=== PATIENT | male | born 1960 | race Caucasian/White ===

== ENCOUNTER 2017-10-23 13:48 | Emergency (ER) | payer OTHER ==
[~2017-10-23] VITALS: Ht 160 cm; Wt 45.4 kg
[~2017-10-23 13:48] MED LIST: ACETAMINOPHEN; ACETAMINOPHEN-1 EAC1 PO; ACETAMINOPHEN325 M1 PO; AMBIEN 10 MG TA10 MG PO; AMBIEN 5 MG TABL5 M1 PO; AMOXICILLIN 50500 M1 PO; ATIVAN1 MG PO; ATIVAN2 MG PO; BACTRIM DS TAB1 EACH PO; BENADRYL25 MG PO; BIAXIN PO; CARAFATE 1 GM TA1 G1 GT; CEPACOL SORE T1 EAC1; CLONAZEPAM 1 MG1 M1 PO; CLOTRIMAZOLE 1%30 M1; COLACE 100 MG100 MG PO; COLACE1 EAC1 RC; DAILY MULTIVIT1 EAC5 PO; DEPAKOTE ER500 MG PO; DEPAKOTE250 MG PO; DILANTIN100 MG PO; FISH OIL 1,001000 M1 PO; GLUCERNA1 EACH PO; IMIPRAMINE HCL25 MG PO; IMODIUM A-D1 MG/5 ML PO; IMODIUM ADVANC1 EAC1 PO; IRON325 PO; LAMISIL AT15 GM TP; LORATIDINE 10 M10 M1 PO; MELATONIN5 M3 PO; MOM PO; MOTRIN 600 MG600 M1 GT; NEXIUM40 MG PO; PEPTO-BISM262 MG/15 PO; PEPTO-BISMOL262 M1 PO; PHENERGAN25 M2 RC; PRED FORTE 1% EY5 M1 OP; PREVACID 30MG C30 M1 PO; REGLAN 10 MG TA10 MG PO; ROBITUSSIN10 MG MM; SEROQUEL 50 MG50 MG PO; SYNTHROID25 MCG PO; TAMSULOSIN HCL0.4 MG PO; TOFRANIL-PM75 MG PO; TRIHEXYPHENIDYL2 M1 PO; ZOCOR 20 MG TAB20 M1 PO; ZOFRAN ODT4 MG PO; ZYPREXA 10 MG T10 M1 PO; ZYPREXA ZYDIS15 MG PO; ZYPREXA20 MG PO; [UNRECOGNIZED DRUG - OTHER] PO; [UNRECOGNIZED DRUG - OTHER] PO
[2017-10-23 14:56] LABS: ABSOLUTE NEUTROPHILS 2.9 thou/uL (1.4-8.2); BASOPHILS 0.3 % (0.0-2.0); EOSINOPHILS 3.8 % (0.0-3.0); HEMATOCRIT 41.9 % (42.0-52.0); HEMOGLOBIN 13.9 gm/dL (14.0-18.0); MCH 30.6 pg (26.0-34.0); MCHC 33.1 g/dL (28.0-37.0); MCV 92.4 fL (80.0-100.0); MONOCYTES 8.7 % (1.0-8.0); POLYS 63.2 % (36.0-66.0); RBC 4.53 mil/uL (4.50-6.00); RDW 17.3 % (10.5-14.5); WBC 4.6 thou/uL (4.0-11.0)
[2017-10-23 15:02] LABS: CALCIUM 9.5 mg/dL (8.5-10.1); CREATININE 1.1 mg/dL (0.7-1.3); POTASSIUM 4.2 mmol/L (3.5-5.1)
[2017-10-23] MEDS ORDERED: ANUSOL-HC25 MG RECTAL (15:08)
[2017-10-23 15:24] LABS: PLATELET COUNT 63 thou/uL (150-400); PLATELET ESTIMATE DECREASED
== END 2017-10-23 15:25 | disposition home or self-care (01) ==
LOC: ER 13:48
PROVIDERS: Physician Assistant
DX: K64.4 Residual hemorrhoidal skin tags (principal); K21.9 Gastro-esophageal reflux disease without esophagitis

== ENCOUNTER 2018-11-16 09:38 | Emergency (ER) | payer OTHER ==
[~2018-11-16] VITALS: Ht 152.4 cm; Wt 59.0 kg
[~2018-11-16 09:38] MED LIST changes: +ANUSOL-HC25 MG RECTAL
[2018-11-16 10:05] LABS: ABSOLUTE NEUTROPHILS 2.6 thou/uL (1.4-8.2); BASOPHILS 0.4 % (0.0-2.0); EOSINOPHILS 4.3 % (0.0-3.0); HEMATOCRIT 41.4 % (42.0-52.0); LYMPHOCYTES 23.1 % (24.0-44.0); MCHC 33.7 g/dL (28.0-37.0); MCV 97.9 fL (80.0-100.0); MONOCYTES 14.4 % (1.0-8.0); POLYS 57.8 % (36.0-66.0); RBC 4.23 mil/uL (4.50-6.00); RDW 14.8 % (10.5-14.5); WBC 5.1 thou/uL (4.0-11.0)
[2018-11-16 10:12] LABS: ANION GAP 3 mmol/L (7-16); BUN 11 mg/dL (7-18); CALCIUM 9.5 mg/dL (8.5-10.1); CHLORIDE 102 mmol/L (98-107); CO2 33 mmol/L (21-32); GLUCOSE 131 mg/dL (74-106); POTASSIUM 3.8 mmol/L (3.5-5.1); SODIUM 138 mmol/L (136-145)
[2018-11-16 10:18] LABS: APTT 22.6 Seconds (24.5-32.8); PROTIME 10.1 Seconds (9.3-11.4)
[2018-11-16 10:20] LABS: ALBUMIN 3.2 g/dL (3.4-5.0); MAGNESIUM 1.9 mg/dL (1.8-2.4); SGOT 21 U/L (15-37); SGPT 16 U/L (30-65); TOTAL BILIRUBIN 0.3 mg/dL (<0.1-1.0); TOTAL PROTEIN 7.1 g/dL (6.4-8.2); TROPONIN-I <0.06 ng/mL (<0.06)
[2018-11-16 10:26] LABS: URINE BILIRUBIN NEGATIVE (Negative); URINE BLOOD NEGATIVE (Negative); URINE CLARITY CLEAR; URINE COLOR YELLOW; URINE GLUCOSE-RANDOM* NEGATIVE (Negative); URINE KETONES TRACE (Negative); URINE LEUKOCYTES-REFLEX NEGATIVE (Negative); URINE NITRITE-REFLEX NEGATIVE (Negative); URINE PROTEIN (DIPSTICK) NEGATIVE (Negative)
[2018-11-16 10:46] LABS: TSH 1.205 uIU/mL (0.358-3.740)
[2018-11-16 11:02] VITALS: BP 101/57
[2018-11-16 11:22] LABS: PLATELET COUNT 71 thou/uL (150-400); PLATELET ESTIMATE SLIGHTLY DECREASED
--- NOTE | 2018-11-16 12:44 | EKG ---
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 : 1960 Requested By: Khang Wheatley Order Number: [id number] MD: Hipolito Crabtree Measurements Intervals [place] Rate: 75 P: 57 OH: 142 QRS: 26 QRSD: 92 T: 55 QT: 359 QTc: 401 Interpretive Statements Sinus rhythm RSR' in V1 or V2, right VCD Baseline wander in lead(s) V2 Compared to ECG 11/15/2010 13:32:55 RSR' in V1 or V2 now present Electronically Signed On 11-16-2018 12:43:56 CDT by Hipolito Crabtree [email or web address] ��������������������������������������������� <ELECTRONICALLY SIGNED> ���������������������������������������� By: Hipolito Crabtree MD ��������������������������������������������� 11/16/18 1243 [id number] Hipolito Crabtree MD /CORBY
== END 2018-11-16 11:03 | disposition home or self-care (01) ==
LOC: ER 09:38
PROVIDERS: Emergency Medicine
DX: F31.9 Bipolar disorder, unspecified (principal); T42.6X1A Poisoning by other antiepileptic and sedative-hypnotic drugs, accidental (unintentional), initial encounter; R56.9 Unspecified convulsions; F20.9 Schizophrenia, unspecified; K21.9 Gastro-esophageal reflux disease without esophagitis; Z90.49 Acquired absence of other specified parts of digestive tract

== ENCOUNTER 2019-03-04 10:57 | Emergency (ER) | payer OTHER ==
[~2019-03-04] VITALS: Ht 160 cm; Wt 52.8 kg
[2019-03-04 10:58] VITALS: BP 121/65
== END 2019-03-04 11:54 | disposition home or self-care (01) ==
LOC: ER 10:57
DX: S01.112A Laceration without foreign body of left eyelid and periocular area, initial encounter (principal); F20.9 Schizophrenia, unspecified; G35 Multiple sclerosis; K21.9 Gastro-esophageal reflux disease without esophagitis; W26.8XXA Contact with other sharp object(s), not elsewhere classified, initial encounter; Y93.89 Activity, other specified; Y92.89 Other specified places as the place of occurrence of the external cause; Y99.8 Other external cause status

== ENCOUNTER 2020-07-26 09:18 | Emergency (ER) | payer OTHER ==
[~2020-07-26] VITALS: Ht 154.9 cm; Wt 57.6 kg
[2020-07-26] MEDS ORDERED: PERCOCET 5-3251 EACH PO (12:19)
[2020-07-26 12:53] VITALS: BP 128/62
== END 2020-07-26 12:54 | disposition home or self-care (01) ==
LOC: ER 09:18
DX: S42.201A Unspecified fracture of upper end of right humerus, initial encounter for closed fracture (principal); K21.9 Gastro-esophageal reflux disease without esophagitis; Z79.899 Other long term (current) drug therapy; W18.39XA Other fall on same level, initial encounter; Y93.89 Activity, other specified; Y92.89 Other specified places as the place of occurrence of the external cause; Y99.8 Other external cause status